=== PATIENT | female | born 1945 | race Caucasian/White ===

== ENCOUNTER 2016-10-18 19:31 | Emergency (ER) | payer OTHER ==
[~2016-10-18] VITALS: Ht 160 cm; Wt 69.4 kg
[~2016-10-18 19:31] MED LIST: ASPIR-MOX IB T325 MG PO; KEFLEX500 MG PO; METOPROLOL SUCC25 MG PO; PEPCID20 MG PO; SIMVASTATIN80 M1 G-TUBE; ZESTRIL,PRINIVIL5 MG PO
[2016-10-18] MEDS ORDERED: HYDROCODON-ACE1 EAC7 PO (20:31)
[2016-10-18] MEDS ORDERED: NAPROXEN500 MG PO (21:24)
[2016-10-18] MEDS ORDERED: SKELAXIN800 MG PO (21:24)
[2016-10-18 21:40] VITALS: BP 178/94
== END 2016-10-18 21:42 | disposition home or self-care (01) ==
LOC: EME 19:31
DX: M54.16 Radiculopathy, lumbar region (principal); I10 Essential (primary) hypertension
CPT/HCPCS: 99281; 99284; J3010; J8540